=== PATIENT | male | born 2000 | race Caucasian/White ===

== ENCOUNTER 2018-08-15 17:51 | Inpatient (IN) | payer MEDICAID, OTHER ==
--- NOTE | 2018-08-15 18:16 | EDPHY ---
H & P Time Seen by Provider: 08/15/18 18:16 HPI/ROS: CHIEF COMPLAINT: Mental health hold HISTORY OF PRESENT ILLNESS: Patient was placed on a mental health hold at [facility] for outburst directed other people, paranoia, thinks that people are following him. Patient denies any acute medical complaints. According to the mental health hold thinks his mother's trying to poison him. REVIEW OF SYSTEMS: Eye: no change in vision ENT: no sore throat Cardiac: no chest pain or syncope Pulmonary: no cough or SOB Abdomen: no vomiting, diarrhea, abdominal pain Musculoskeletal: no back pain Skin: no rash Neuro: no headache Constitutional: no fever : no urinary symptoms A comprehensive 10 point review of systems is otherwise negative aside from elements mentioned in the history of present illness. PAST MEDICAL HISTORY: Asperger's and asthma Social history: THC only no drugs or alcohol other than that General Appearance: Alert and conversant, cooperative. Eyes: No scleral icterus. ENT, Mouth: Normal mucous membranes. Respiratory: Normal respiratory effort, breath sounds equal, lungs are clear to auscultation. Cardiovascular: Regular rate and rhythm. Gastrointestinal: Abdomen is soft and non tender. Neurological: Alert, face symmetric, normal motor and sensory in extremities. Skin: Warm and dry, no rashes. Musculoskeletal: No peripheral edema. Psychiatric: Not agitated. Does think people are following him. Denies suicidal ideation. Denies wanting to hurt other people. Emergency Department course/MDM: The patient had a medical screening evaluation performed. There does not appear to be an acute emergent medical or surgical condition which would preclude psychiatric evaluation at this time. Mental health evaluation is requested. Signed out to Janee with psychiatric evaluation pending at this time. (Andi Berman) Constitutional: Initial Vital Signs Temperature (C) 36.6 C 08/15/18 18:33 Heart Rate 80 08/15/18 18:33 Respiratory Rate 14 08/15/18 18:33 Blood Pressure 129/82 H 08/15/18 18:33 O2 Sat (%) 98 08/15/18 18:33 O2 Delivery Mode Room Air Medical Decision Making ED Course/Re-evaluation: 2100: The patient is signed out to mn at change of shift by Dr. Andi Berman. The patient is awaiting evaluation. Patient is signed out to Dr. Valdes at change of shift. (Zamzam Weller) 2315: Patient accepted and [address] Ruiz. Appropriate transfer be set up. EMTALA filled out. Acute Psychosis. (Dimitri Valdes) - Data Points Laboratory Results: Laboratory Results 08/15/18 18:10 08/15/18 18:10 08/15/18 08/15/18 08/15/18 18:48 18:10 18:10 WBC 5.69 10^3/uL 10^3/uL (3.80-9.50) RBC 4.28 10^6/uL L 10^6/uL (4.40-6.38) Hgb 12.8 g/dL L g/dL (13.7-17.5) Hct 38.5 % L % (40.0-51.0) MCV 90.0 fL fL (81.5-99.8) MCH 29.9 pg pg (27.9-34.1) MCHC 33.2 g/dL g/dL (32.4-36.7) RDW 12.8 % % (11.5-15.2) Plt Count 187 10^3/uL 10^3/uL (150-400) MPV 9.5 fL fL (8.7-11.7) Neut % (Auto) 58.6 % % (39.3-74.2) Lymph % (Auto) 32.7 % % (15.0-45.0) [place] % (Auto) 7.2 % % (4.5-13.0) Eos % (Auto) 0.9 % % (0.6-7.6) Baso % (Auto) 0.4 % % (0.3-1.7) Nucleat RBC Rel Count 0.0 % % (0.0-0.2) Absolute Neuts (auto) 3.34 10^3/uL 10^3/uL (1.70-6.50) Absolute Lymphs (auto) 1.86 10^3/uL 10^3/uL (1.00-3.00) Absolute Monos (auto) 0.41 10^3/uL 10^3/uL (0.30-0.80) Absolute Eos (auto) 0.05 10^3/uL 10^3/uL (0.03-0.40) Absolute Basos (auto) 0.02 10^3/uL 10^3/uL (0.02-0.10) Absolute Nucleated RBC 0.00 10^3/uL 10^3/uL (0-0.01) Immature Gran % 0.2 % % (0.0-1.1) Immature Gran # 0.01 10^3/uL 10^3/uL (0.00-0.10) Sodium 139 mEq/L mEq/L (135-145) Potassium 3.2 mEq/L L mEq/L (3.5-5.2) Chloride 108 mEq/L mEq/L (97-110) Carbon Dioxide 24 mEq/l mEq/l (22-31) Anion Gap 7 mEq/L mEq/L (6-14) BUN 15 mg/dL mg/dL (7-23) Creatinine 0.7 mg/dL mg/dL (0.7-1.3) Estimated GFR > 60 Glucose 125 mg/dL H mg/dL (70-100) Calcium 9.0 mg/dL mg/dL (8.5-10.4) Urine Opiates Screen NEGATIVE (NEGATIVE) Urine Barbiturates NEGATIVE (NEGATIVE) Ur Phencyclidine Scrn NEGATIVE (NEGATIVE) Ur Amphetamine Screen NEGATIVE (NEGATIVE) U Benzodiazepines Scrn NEGATIVE (NEGATIVE) Urine Cocaine Screen NEGATIVE (NEGATIVE) U Marijuana (THC) Screen NON-NEGATIVE H (NEGATIVE) Ethyl Alcohol < 10 mg/dL mg/dL (0-10) Departure - Departure Disposition: [facility] IP Clinical Impression: Acute psychosis Condition: Fair Referrals: Patient,NotPresent [Unknown] - As per Instructions
[2018-08-15 18:23] LABS: PLATELET COUNT 187 10^3/uL (150-400)
--- NOTE | 2018-08-15 22:24 | ASMTTCLDSP ---
TLC Discharge Disposition Disposition: Answers: Admit Discharge Concerns/Recommendations: Notes: In consultation with [facility] ED physician, Dimitri Hanks MD and on-call psychiatrist, Dr. Joseph MD, both concurred that pt appears to meet 27-65 criteria requiring psychiatric hospitalization as pt appears to be at risk of harm to self/ others due to a mental illness condition. Pt was given the 3N prohibited belongings list while in the ED. For inpatient Trixie Ruiz MD admission, the following psychiatrist agreed to accept patient [facility] Date Signed: 08/15/2018 10:23 PM Electronically Signed By:Benita Simms
[2018-08-16] MEDS ORDERED: ACETAMINOPHEN 325 MG TAB PO PRN (02:05)
[2018-08-16] MEDS ORDERED: OLANZapine DISINTEGR 5 MG TAB PO PRN (02:05)
[2018-08-16] MEDS ORDERED: NICOTINE POLACRILEX 2 MG GUM B PRN (02:05)
[2018-08-16] MEDS ORDERED: MELATONIN 3 MG TAB PO PRN (02:05)
[2018-08-16] MEDS ORDERED: MAG HYDROX/AL HYDROX/SIMETH 30 ML UDCUP PO PRN (02:05)
[2018-08-16] MEDS ORDERED: LORazepam 0.5 MG TAB PO PRN (02:05)
[2018-08-16] MEDS ORDERED: MAGNESIUM HYDROXIDE 30 ML UDCUP PO PRN (02:05)
--- NOTE | 2018-08-16 07:36 | ASMTBHMTP ---
Master Treatment Plan Date: 08/16/2018 Diagnosis on Admission: Unspecified Psychosis Expected length of stay: 3-5 days Reason for admission: Notes: Client was in the middle of having a psychotic break.* Patient's stated presenting problems: Notes: "I raised my voice while doing an assessment at [facility]." Patient's goals for treatment: Notes: To sleep, be less angry and try to do the right things Patient's strengths: Notes: some Identify supports outside of hospital: Notes: family and friends Discharge criteria: Notes: Patient will demonstrate more stable mood by discharge.* Initial disposition plan/considerations: Notes: return back home to [place], [place].* Master Treatment Plan Required Signatures Psychiatrist signature: Answers: Psychiatrist: RN on-shift signature: Answers: RN: Patient signature: Answers: Patient: Date Signed: 08/16/2018 07:35 AM Electronically Signed By:Panda Mcrae
--- NOTE | 2018-08-16 12:01 | BAPA ---
DATE OF SERVICE: 08/16/2018 CHIEF COMPLAINT: "Getting an assessment at [facility], and they recommended that I go to the hospital." HISTORY OF PRESENT ILLNESS: From the ED note dated 08/15/2018, the patient was placed on a mental health hold at [facility] for outburst directed at other people, paranoia, and thinking that people are following him. The patient was admitted involuntarily on an M1 hold due to being gravely disabled and is hospitalized for safety, crisis stabilization, and medication evaluation. 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 The patient reports increased use of THC and reports "probably using too much." The patient reports daily use of marijuana at least 3-4 times every day for several months. The patient reports no history of being diagnosed with a mental illness. The patient reports using no other alcohol or substances prior to his admission. The patient reports no current psychiatric symptoms. The patient reports no paranoia and reports no delusions or paranoia regarding people following him. The patient reports recent emotional abuse at the [facility]. Patient reports anxiety symptoms including excessive anxiety and worry occurring more days than not for at least 6 months, patient finds it difficult to control worry, and describes having the following symptoms that have been present for more days than not for the past 6 months: restlessness, being easily fatigued, difficulty concentrating or mind going blank, and irritability. The patient denies any PTSD symptoms from this abuse. The patient denies psychiatric symptoms, including symptoms of depression, robby, ADHD, OCD, PTSD, psychosis, and any other symptom of psychiatric disorder. The patient describes to this DRIVERS' CASH CLERK current psychiatric symptoms are impacting managing his day-to-day life described as reports he currently lives with his mother in [place], [place], and reports he does attend to household responsibilities without any difficulty. 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 The patient reports he is socializing a lot better than when he was a child and in high school and reports he does have friends he socializes with. The patient reports he gets along well with his mother and currently lives with his mother. The patient states he is currently not in school. Enjoys hobbies, including film making and writing. The patient states he is generally satisfied with his life. The patient denies current suicidal ideation and reports protective factors or reasons to live as life, his future, and his family. The patient reports future goals as entering the [employer] business. The patient reports his mother is supportive. The patient denies current homicidal ideation and denies current self-injurious ideation. The patient reports he currently is not established with medication management or therapy on an outpatient basis. The patient does state he has a primary care provider in the community, but states he cannot remember the provider's name at this time. PAST PSYCHIATRIC HISTORY: The patient describes to this DRIVERS' CASH CLERK the following psychiatric history: Patient reports no past diagnoses of psychiatric illness. Patient reports no past psychotropic medication trials. The patient reports no history of inpatient psychiatric hospitalization and treatment. No history of withdrawal from drugs or alcohol. The patient denies any history of suicide attempts or self-injurious behavior. ALLERGIES: No known allergies. CURRENT MEDICATIONS: After reviewing options, risks, and benefits with the patient, the patient reports he is not interested in medications at this time. Medications may not be indicated, as patient's most recent increase in anxiety and paranoia may be due to patient's increased use of THC. PAST MEDICAL HISTORY: The patient describes to this DRIVERS' CASH CLERK the following: Patient reports no past neurological history, including history of organic brain disease , traumatic brain injury, or concussions. The patient reports no history of major illnesses. The patient reports he was hospitalized as a child for asthma. SOCIAL HISTORY: The patient describes to this DRIVERS' CASH CLERK the following social history: The patient reports he was born in [place] and raised the majority of his life in [place] by his mother. The patient states he currently lives with his mother in [place]. The patient describes meeting all his developmental milestones. Reports no history of learning delays or difficulties. The patient describes his sexual orientation as amezcua sexual. States he is currently not in a relationship, has never been , and has no children. 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 The patient reports highest level of education is some college. Reports no history of duty. No zoroastrian or spiritual practice and no history of legal charges or issues. SUBSTANCE USE HISTORY: The patient describes to this DRIVERS' CASH CLERK the following substance use history: The patient reports he does not consume alcohol and uses marijuana daily for approximately 2 years with an increased use of marijuana over the last 1-2 months. The patient denies all other history of illicit substance use. SUBSTANCE ABUSE BRIEF INTERVENTION: Brief intervention regarding the risks of cannabis abuse is provided to patient with goal to reduce the risk of harm that could result from the continued use of cannabis, with the general aim to investigate the problem, raise awareness of problem, develop a solution with the patient, recommend a specific change or activity, and motivate the patient toward change. Assess substance abuse behavior and give supportive advice about harm reduction, recommend a reduction in hazardous/at-risk consumption patterns, and facilitate referrals for additional specialized treatment with disabilities caregiver. Intermediate goal is for the patient to quit and attend outpatient substance abuse treatment. Intervention focus on intermediate goals to allow for more immediate success in the treatment process to keep the patient motivated. Review following with patient: Cannabis use risks: Short- term use: impaired short-term memory, impaired motor coordination, altered judgement, in high doses paranoia and psychosis. Long-term use addiction, diminished life satisfaction and achievement, symptoms of chronic bronchitis, and increased risk of chronic psychosis disorders if predisposition to such disorders. In withdrawal anger, aggression irritability, anxiety and nervousness, decreased appetite or weight loss, restlessness, and sleep difficulties with strange dreams. OUTPATIENT SUBSTANCE ABUSE TREATMENT: Patient referred to outpatient provider and treatment for continued treatment related to substance abuse. FAMILY PSYCHIATRIC HISTORY: The patient describes to this DRIVERS' CASH CLERK the following family psychiatric history: The patient reports his mother suffers from PTSD. The patient reports no family history of suicide or suicide attempts and no family history of substance abuse. ADMISSION LABS AND STUDIES: 1. CBC from 08/15/2018 within normal limits, except red blood cells were low at 4.28. Hemoglobin was low at 12.8, hematocrit was low at 38.5. 2. BMP within normal limits, except potassium was low at 3.2, glucose was elevated at 125. 3. Hemoglobin A1c was 5.6 and within normal limits. 4. Liver function within normal limits. 5. Lipid panel within normal limits, except triglycerides were low at 31, cholesterol was low at 139, VLDL cholesterol was low at 6, non-HDL cholesterol was low at 89. 6. Toxicology screen non negative for THC, negative for all other substances screen and negative for ethyl alcohol. MENTAL STATUS EXAM: The patient is a well-nourished male looking stated chronological age. Attire is appropriate. Dress is casual, neat, and clean. Grooming status is appropriate, neat, and clean and washed. Ambulation is independent. Gait is normal and coordinated. Posture is normal and relaxed. Eye contact is appropriate and adequate. Motor activity is appropriate with purposeful, organized, coordinated movements with no involuntary movements noted. Attitude is cooperative and friendly. The patient appears attentive and relates well to this interviewer. Language production is spontaneous. Rate , rhythm, and volume are normal. Articulation is clear. The patient reports mood as euthymic with adequately ranged and congruent affect. Patient's thought process is linear and logical with no loose associations, tangential thought, thought blocking, concrete thinking, or any other signs of formal thought disorder. The patient does not report suicidal, homicidal thoughts, ideas, or plans. The patient denies auditory or visual hallucinations. Patient denies delusions. The patient does not appear to be attending to internal stimuli. The patient is oriented to person, place, time, and situation. The patient's attention and concentration are fair. The patient's insight and judgment are poor. There is no evidence of gross cognitive dysfunction at any point during the interview and no evidence of apparent dysfunction in recent or remote memory noted. DIAGNOSES: Based on the patient's history and current presentation, the patient 's diagnoses are: 1. Generalized anxiety disorder. 2. Cannabis-induced delusions, psychosis. 3. Cannabis use disorder, severe. 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 He presents to the hospital involuntarily due to being gravely disabled and is currently on an M1 hold. Patient requires continued inpatient care because of recent crisis that led to this hospitalization. The patient presents with problems of increased anxiety and paranoia that have steadily been increasing over the past several weeks. Patient's life has been affected by these problems, including seeking evaluation at [facility]. The onset and exacerbation of symptoms was preceded by patient's increased use of THC. The patient reports no past psychiatric history. The patient is a high safety risk due to recent anxiety and paranoia and the crisis at [facility] that led to this hospitalization. The patient could benefit from observation to ensure anxiety and paranoia clear in the absence of THC use. PROTECTIVE FACTORS WHILE HOSPITALIZED: Include ongoing safety checks, active involvement in treatment, and support from our treatment team. The patient could benefit from inpatient hospitalization for safety, crisis stabilization, and medication evaluation. PLAN: 1. Psychotropic medications: After reviewing options, risks, and benefits with the patient, the patient reports he is not interested in medications for anxiety at this time. Psychotropic medications may not be indicated, as the patient's most recent psychiatric symptoms of anxiety and increased paranoia may be due to the patient's recent increased use of THC. No other medication changes at this time as more time is needed to determine ongoing tolerability and efficacy. Plan is to continue to observe patient for response and side effects from medications, and ongoing monitoring and evaluation. 2. Review with patient informed consent and recommendations for psychotropic medication treatment listed below 3. Labs: A1c, liver function, lipid panel 4. Therapy: continue milieu and group therapy 5. Further investigation including gathering information from patients relatives and review of past case records to inform treatment plan. 6. Safety/Wellness plan and follow-up outpatient appointments to be established prior to discharge. Next steps are for patient to meet with child care specialist to plan a safe discharge plan and establish outpatient services for ongoing treatment. 7. Confer with inpatient treatment team regarding treatment plan. 8. Address psychosocial stressors by meeting with disabilities caregiver to establish discharge plan including referrals for outpatient services. 9. Legal status: M1 10. Consider discharge next week if patient is in stable condition, safe, and has a safe discharge plan. 11. Substance abuse interventions: cannabis ESTIMATED LENGTH OF STAY: 1-3 days PSYCHOTROPIC MEDICATION TREATMENT INFORMED CONSENT and RECOMMENDATIONS: Review nature of condition, diagnosis, and prognosis. Review nature and purpose of psychotropic medication treatment. Review type of psychotropic medications being ordered. Review risk and benefits of psychotropic medication treatment. Review probable length of time will need to take medications. Review risk and benefits of not undergoing psychotropic medication treatment. Review alternative treatments to psychotropic medications. Review psychotropic medications contraindications, drug-drug interactions, side effects, and importance of reporting any side effects to a psychiatric provider or nurse during inpatient hospitalization, and upon discharge to patients psychiatric outpatient provider, primary care provider, or other health patient care representative. Review importance of asking a nurse, psychiatric provider, or primary care provider any questions or problems concerning the psychotropic medications. Verify patient understands the information that has been provided, and understands, accepts, and agrees to psychotropic medications. Review patients safety plan and importance of patient to communicate to staff while hospitalized if patient is ever a danger to self/others, or unable to care for self, and upon discharge, the importance for patient to contact [facility] or [facility], or go to the nearest emergency room, if patient is ever a danger to self/others, or unable to care for self. Recommend that upon discharge patient establish medication management treatment with a psychiatric provider, establishes routine therapy appointments, and follow-up with primary care provider. Verify patient understands and agrees to these recommendations. /[id number]/MODL KIERRA
--- NOTE | 2018-08-16 12:30 | PDMN ---
Medical Necessity Medical necessity: Pt meets IP criteria as of 08/16/2018 per and [facility] B-[id number] ( Anxiety Disorders, Adult, IP care); los > 2 mn for ongoing tx and management of generalized anxiety disorder on M1 hold for grave disability.
--- NOTE | 2018-08-16 14:47 | BCON ---
INTERNAL MEDICINE CONSULTATION DATE OF CONSULTATION: 08/16/2018 REFERRING PHYSICIAN: Trixie Ruiz MD REASON FOR REFERRAL: Medical clearance for inpatient behavioral health stay. HISTORY OF PRESENT ILLNESS: This patient came to the emergency department. He had been placed on a mental health hold at [facility]. He had outbursts directed at other people and paranoia, and he thought his mother was trying to poison him. He was evaluated by the mental health team and admitted for further psychiatric care. Currently, he is without any acute complaints. PAST MEDICAL HISTORY: 1. Asthma. 2. Asperger's syndrome. PAST SURGICAL HISTORY: He had an injury to the 4th finger of his right hand with surgical correction and his left with a swan-neck deformity. MEDICATIONS: Prior to admission, he was taking no medications. SOCIAL HISTORY: He is a nonsmoker and denies using alcohol. He has been using large amounts of cannabis. 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 He lives with his mother. He has been in college and plans to return, though he is also looking for full-time work at present. FAMILY HISTORY: Noncontributory. REVIEW OF SYSTEMS: He is not in pain. He denies cough or dyspnea. He denies chest pain or palpitations. He denies nausea, vomiting, constipation, or diarrhea. He denies abdominal pain, and otherwise, a 10-point review of systems is negative. He has recently become a vegetarian, and he reports he has had weight loss and then regained some of the weight. PHYSICAL EXAM: VITAL SIGNS: Blood pressure is 115/57. Heart rate is 69. Respiratory rate is 20. Oxygen saturation is 93% on room air. Temperature is 36.3 degrees centigrade. His weight is 65.8 kg, for a body mass index of 18.6. GENERAL: This is a thin man, appears his chronologic age, dressed in street clothes, sitting up on the bed, cooperative and in no acute distress. HEENT: Extraocular movements are intact. Pupils are equal, round, reactive to light. Mucous members are moist. Dentition is in good condition. He has an uncrowded airway, Mallampati class 1. NECK: Supple. HEART: There is a regular rate and rhythm, with no murmurs, rubs, or gallops. LUNGS: Clear to auscultation bilaterally. ABDOMEN: Benign. EXTREMITIES: There is no cyanosis, clubbing, or edema. NEUROLOGIC: He is alert and oriented x3. Cranial nerves 2-12 are grossly intact. There is no focal weakness. Sensation is intact to light touch , and gait is within normal limits. LABORATORY STUDIES: From the emergency department: CBC showed anemia with a hemoglobin of 12.8 and hematocrit of 38.5. Red cell indices were normal, as were white blood cell count and platelet count. Serum chemistry showed mild hypokalemia with a potassium of 3.2. Glucose was elevated at 125, but this may not have been fasting. Hemoglobin A1c was normal at 5.6. Liver function tests were normal. Lipid panel was quite benign, with a total cholesterol of 139, an LDL of 83, and an HDL of 50. Toxicology screen in the serum was negative for ethyl alcohol and in the urine was non-negative for marijuana, but otherwise negative for substances of abuse. ASSESSMENT/RECOMMENDATIONS: 1. Mental health issues pending further evaluation and management per Psychiatry and the mental health team. 2. Marijuana use disorder. He might benefit from specific substance abuse counseling. 3. Anemia of unclear etiology. I will order iron panel, as well as a reticulocyte count to further characterize this anemia. 4. Hypokalemia. Also unclear etiology. It is mild. He can have followup testing after his discharge from inpatient behavioral health. I see no medical contraindications to this patient's continued stay on the inpatient behavioral health unit or to any psychiatric medications or procedures. Thank you very much for including me in the care of this patient and please do not hesitate to contact me or the hospitalist service should there be need for further medical evaluation. /[id number]/MODL MTDD
--- NOTE | 2018-08-16 18:38 | SOAPPROG ---
SOAP Progress Note Assessment/Plan: Assessment: Anemia, iron deficiency. Possibly due to vegetarian diet, though other etiologies of blood-loss anemia should be considered. I have ordered ferrous sulfate 325 mg p.o. Q.day for 30 days. He can have followup with primary care after his discharge. 08/16/18 18:37 Subjective: Reviewed labs. Iron deficiency and reduced reticulocyte count. 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
[2018-08-17] MEDS: FERROUS SULFATE 325 MG TAB PO SCH (08:12)
--- NOTE | 2018-08-17 14:55 | ASMTCMCOM ---
CM Note CM Note Notes: Pt. reports feeling "pretty good". Pt. reports he kept waking up last night, stating he maybe" coming down from THC". Pt. reports eating well. Pt. stated he is attending groups, adding "I like them". Pt. stated he is not currently taking medications Pt. denied SI, HI, AVH and paranoia. Pt. presents as alert, calm, friendly, good eye contact, groomed, and cooperative. Staff report pt. sleeping 10 hours and being medication compliant. Date Signed: 08/17/2018 02:54 PM Electronically Signed By:Kim Luong
--- NOTE | 2018-08-17 19:19 | SOAPPROG ---
SOAP Progress Note Assessment/Plan: Assessment: 18 yo man with h/o cannabis-induced paranoid delusions. His psychotic sxs have resolved since admission while he is in controlled environment. Plan: 08/17/18 19:[address] Kiser started patient on Ferrous Sulfate 325mg daily x 30 days for iron- deficiency anemia likely d/t vegetarian diet. Recommend f/u with PCP after d/c. 2. Patient denies all psychotic sxs. His paranoid delusions have resolved since admission. 3. Patient does not want to take any psych meds. MD advised patient about risks and potential adverse effects associated with cannabis use including paranoia and other psychotic sxs. He agrees he needs to "cut back." 4. Referral for patient to seek mental health services through [facility]. MD recommend IOP or similar tx for substance use disorder. 5. [facility] expires tomorrow. Will likely d/c at that time as he no longer meets criteria for inpatient. Subjective: Patient sitting in chair in front of TV watching football game. Patient requests melatonin to help him sleep. He denies any AH/VH and reports that his paranoid delusions have resolved. He says he has probably been using "way too much cannabis." He would like to cut back. suggested IOP for substance use treatment. He is willing to see shelter case manager at [facility] to discuss options for treatment. Objective: Vital Signs Temp Pulse Resp BP Pulse Ox 36.3 C 72 14 117/67 97 08/17/18 06:00 08/17/18 06:00 08/17/18 06:00 08/17/18 06:00 08/17/18 06:00 Laboratory Results 08/16/18 06:10 MSE: Affect: Euthymic Mood: "Good" TP: Linear TC: Denies SI/HI, denies any paranoid thoughts Perception: Denies any SI/HI Insight/Judgment: Fair - Time Spent With Patient Time Spent With Patient: 15" - Pending Discharge Pending Discharge Within 24 Hours: Yes Pending Discharge Within 48 Hours: No Pending Discharge Date: 08/18/18 (Likely to d/c tomorrow once hold expires) Pending Discharge Time: 11:00 ICD10 Worksheet Patient Problems: Problems Problem Status Onset Cannabis use disorder, severe, dependence Acute 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
[2018-08-17] MEDS: MELATONIN 3 MG TAB PO PRN ×2 (20:28→20:44)
[2018-08-18 06:53] VITALS: BP 116/67
[2018-08-18] MEDS: FERROUS SULFATE 325 MG TAB PO SCH (08:09)
--- NOTE | 2018-08-18 15:23 | BDS ---
REASON FOR ADMISSION: Patient is a 18-year-old man who was placed on a mental health hold at [facility] for grave disability. He had an outburst at the [facility] walk-in clinic and was acting pa ranoid, thinking that people were following him. Also told the folks at the [facility] t hat his mother was trying to poison him. The patient reports daily use of marijuana, 3 to 4 times a day. Increased use over the last several months. He admits that this has led him to feel more anxio us and paranoid. He says that he finds it difficult to stop worrying. The patient is currently living with his mother in [place]. 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 The patient denied any hallucinations. He denied feeling sad, depressed, helpless, hopeles s, worthless, or anxious. He denied panic attacks. He had no signs or symptoms of robby. Denied in creased goal-directed activity, decreased need for sleep, elated elevated mood, grandiose delusions, racing thoughts, or pressured speech. ADMITTING DIAGNOSES: 1. Generalized anxiety disorder. 2. Cannabis-induced psychosis. 3. Cannabis-use disorder, severe. PHYSICAL EXAMINATION: Was done by Dr. Theo Kiser. The patient has a history of asthma, carries a diagnosis of Asperger disorder. He presented with hypokalemia that was mild. Dr. Kiser did not recommend any interventions. There were no acute abnormal physical findings. He did have anemia. Tony Kiser did order an iron panel, including a retic count. LABS: White cell count was 5.69, hemoglobin was 12.8, hematocrit was 38.8, platelet count was 187. His absolute reticulocyte count was 0.050, and the percent was 1.07. Sodium was 139, potassium 3.2, chloride 108, BUN 15, creatinine 0.7, glucose 125. Hemoglobin A1c was 5.6. Calcium was 9.0, magnesi um 1.9. Iron was 45, iron saturation was 14. Total bilirubin was 0.7, AST was 28, ALT was 21, alkal ine phosphatase was 71, total protein was 7.1, albumin 4.0. Triglycerides 31, cholesterol 139. Urin e drug screen was positive for marijuana. Negative for all other drugs of abuse. HOSPITAL COURSE: Patient was seen by the psychiatric Nurse Practitioner, Yang Crain, on 08/16/2018 , the patient's first full day of admission. At that time, when Yang Crain interviewed the patient , the patient denied any paranoid delusions. His psychotic symptoms had resolved. He did not feel l gato people were following him or out to get him. He did not feel like his mother was trying to poiso n him. He basically denied all paranoid delusions. He also denied any acute psychotic symptoms, inc luding denying auditory and visual hallucinations. Denied ideas of reference. There was no other ev idence of delusions present. Te patient denied any acute mood problems. He did not have any signs o r symptoms of robby. He also denied feeling sad, depressed, helpless, hopeless, worthless. He also denied any thoughts, plans, or intents, to hurt himself or anyone else. Yang Crain did talk to the patient about the possibility of taking psychotropic medications. The patient was against that. He said that he did not feel like he needed medications because he was not having any symptoms any long er. The psychiatric nurse practitioner did talk to the patient about the adverse effects of THC on m ood and cognition. They discussed that cannabis use can cause psychosis including paranoid delusions , also the risk of prolonged exposure to cannabis increases the risk of developing a psychotic disord er, and also has significant effects on mood, lability, depression, and thoughts of suicide. The yaa barrow admitted that he felt like he "had been using too much cannabis." Patient also said that he wan rd to "cut down" his use and that he was willing to speak to a counselor after discharge, but he dec lined any psychotropic medications. Dr. Kiser reviewed the patient's labs and spoke to the patient about his anemia. Labs indicated brown t the patient has iron deficiency anemia. Dr. Kiser noted that it was most likely due to the patien t's vegetarian diet, although there were other reasons why the patient might have iron loss. He said that his recommendation was for the patient to take iron supplements 325 mg p.o. daily for 30 days a nd then follow up with his primary care physician. The patient said that he agreed to do that. This MD saw the patient on 08/17/2018. The patient denied all psychotic symptoms. His paranoi d delusions had fully resolved since admission. Patient repeated that he did not want to be on any p sychotropic medications at this time. This MD reviewed the risks and potential adverse effects assoc iated with cannabis use including paranoia and other psychotic symptoms, as well as the effect of pro longed use on mood. The patient agreed that he was going to "cut back" on his cannabis use. He felt like he had gone overboard, especially in the last several months, and recognized that it was making his anxiety and paranoia worse. The patient said he was willing to seek followup services through [facility]. This MD recommended intensive outpatient program or similar treatment for sub stance-use disorder. Patient says that he is willing to talk to a foster care case manager at [facility] about outpatie nt treatment options when he leaves. DISCHARGE MEDICATIONS: The patient was discharged with a prescription for iron supplements, ferrous sulfate 325 mg 1 tab p.o. daily, 30 tabs, no refills, and melatonin 3 to 6 mg p.o. at bedtime p.r.n. for sleep, 30 tabs, no refills. DISCHARGE DIAGNOSES: [place] I: 1. Cannabis-induced psychosis. 2. Cannabis-use disorder, severe. CONDITION AT DISCHARGE: The patient was in good spirits, stable condition. He says that his mood is "good." He denies any paranoid delusions. Denies psychotic symptoms. Denies thoughts, plans, or i ntents, to hurt himself or anyone else. ATTITUDE AT DISCHARGE: The patient was looking forward to getting back to work, going to stay with h is mom. He also stated that he would take the recommendations from the treatment team about followin g up for substance-use disorder counseling through [facility]. FOLLOWUP CARE: The patient is not currently connected with any outpatient providers. He was given r eferrals to the [facility] Walk[facility]in [facility], the days and times when he could go to that. He said that would not be a problem for him. His mother was coming to pick him up. She said she not ed that she felt the patient was "fine" to come home and that he would be staying with her and she wo uld make sure that he followed up with his PCP in order to get his anemia rechecked after he finishes a 3 0-day course of the iron supplements. /[id number]/MODL
--- NOTE | 2018-08-18 15:24 | ASMTBHDC ---
Notes Note: Notes: Pt. reports feeling "pretty good". Pt. stated he slept "alright" adding the melatonin helped. Pt. stated he did "still tossed and turned, but better than last night". Pt. reports today being his third day on THC withdrawal Pt. stated "maybe I'll completely abstin" from THC. Pt. reports eating well and attending groups "as much as I can". Pt. reports no issues with his current medication. Pt. stated he wants to discharge today, adding his mother can pick him up. Pt. stated he is able to schedule his own follow up appointments. Pt. denied SI, HI, AVH and paranoia. Pt. presents as alert, calm, polite, good eye contact, friendly and cooperative. Staff report pt. sleeping 9 hours. CC provided marijuana anonymous information pt. requested. Date Signed: 08/18/2018 03:24 PM Electronically Signed By:Kim Luong
== END 2018-08-18 16:20 | disposition home or self-care (01) | DRG 897 ==
LOC: EDUNIT# → BBEH 08-16 01:50
PROVIDERS: ADMIT Psychiatry & Neurology Behavioral Neurology & Neuropsychiatry; ATTEND Psychiatry & Neurology Behavioral Neurology & Neuropsychiatry
DX: F12.950 Cannabis use, unspecified with psychotic disorder with delusions (principal); F12.980 Cannabis use, unspecified with anxiety disorder; E87.6 Hypokalemia; D64.9 Anemia, unspecified; F84.5 Asperger's syndrome; J45.909 Unspecified asthma, uncomplicated
CPT/HCPCS: 80305; G0480

== ENCOUNTER 2018-11-09 18:01 | Emergency (ER) | payer MEDICAID ==
[2018-11-09 18:08] VITALS: BP 144/85
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
== END 2018-11-09 18:30 | disposition home or self-care (01) ==
DX: S00.83XA Contusion of other part of head, initial encounter (principal); R20.2 Paresthesia of skin; F84.5 Asperger's syndrome; Y04.8XXA Assault by other bodily force, initial encounter; Y99.9 Unspecified external cause status

== ENCOUNTER 2018-11-11 16:17 | Emergency (ER) | payer MEDICAID ==
[2018-11-11 16:30] VITALS: BP 113/68
--- NOTE | 2018-11-11 16:39 | EDPHY ---
H & P Stated Complaint: injury yesterday; back pain between shoulder blades, anxiety, panic attack Time Seen by Provider: 11/11/18 16:39 - Personal History Current Tetanus/Diphtheria Vaccine: No Current Tetanus Diphtheria and Acellular Pertussis (TDAP): No - Medical/Surgical History Hx Asthma: Yes Hx Chronic Respiratory Disease: No Hx Diabetes: No Hx Cardiac Disease: No Hx Renal Disease: No Hx Cirrhosis: No Hx Alcoholism: No Hx HIV/AIDS: No Hx Splenectomy or Spleen Trauma: No Other PMH: aspergers, asthma - Social History Smoking Status: Never smoked Constitutional: Initial Vital Signs Temperature (C) 36.6 C 11/11/18 16:25 Heart Rate 72 11/11/18 16:25 Respiratory Rate 14 11/11/18 16:25 Blood Pressure 113/68 11/11/18 16:25 O2 Sat (%) 97 11/11/18 16:25 O2 Delivery Mode Room Air Allergies/Adverse Reactions: No Known Allergies Allergy (Verified 11/09/18 18:03) Home Medications: Medication Instructions Recorded NK [No Known Home Meds] 11/09/18 Medical Decision Making ED Course/Re-evaluation: CHIEF COMPLAINT: Back pain HISTORY OF PRESENT ILLNESS: The patient is a 18 y/o male with a history of Asperger complaining of back pain between his shoulder blade today. The patient states he was dancing yesterday when he thought he tweaked his back. Due to this pain today he had an anxiety attack and EMS was called. As his pain has not improved he decided to present to the emergency department. No fever, headache, body aches, lightheadedness, chest pain, heart palpitations, shortness of breath, cough, abdominal pain, urinary or bowel complaints, paresthesias. REVIEW OF SYSTEMS: A comprehensive 10 system review of systems is otherwise negative aside from elements mentioned in the history of present illness and medical decision making. PHYSICAL EXAM: HR, BP, O2 Sat, RR. Temp noted General Appearance: Alert, well hydrated, appropriate, and non-toxic appearing. Head: Tenderness over the left eyebrow, which I believe is residual to the contusion. Eyes: Pupils equal, round, reactive to light and accommodation, EOMI, no trauma , no injection. Ears: Clear bilaterally, no perforation, normal landmarks Nose: Atraumatic, no rhinorrhea, clear. Throat: There is no erythema or exudates, no lesions, normal tonsils, mucus membranes moist. Neck: Supple, 2+ carotid upstroke, nontender, no lymphadenopathy. Respiratory: No retractions, no distress, no wheezes, and no accessory muscle use. Lungs are clear to auscultation bilaterally. Cardiovascular: Regular rate and rhythm, no murmurs, rubs, or gallops. Bilateral carotid, radial, dorsalis pedis, and posterior tibial pulses intact. Good capillary refill all extremities. Gastrointestinal: Abdomen is soft, nontender, non-distended, no masses, no rebound, no guarding, no peritoneal signs. Back: Pimple in between shoulder blades at location of back pain. Musculoskeletal: Normal active ROM of all extremities, atraumatic. Neurological: Alert, appropriate, and interactive. The patient has normal DTRs and non-focal cranial nerves, motor, sensory, and cerebellar exam. Skin: No rashes, good turgor, no nodules on palpation. Past medical history: Asthma and Asperger Past surgical history: Denies Family history: Denies Social history: Single, lives in [place], employed DIAGNOSTICS/PROCEDURES/CRITICAL CARE TIME: Not indicated. DIFFERENTIAL DIAGNOSIS: The differential diagnosis for the patient's head injury included but was not limited to soft tissue contusion, concussion, skull fracture, intra-parenchymal contusion, subarachnoid, subdural and epidural hematoma. MEDICAL DECISION MAKING: The patient is a 18 y/o male with a history of Asperger presenting with back pain today. On exam the patient has a pimple on his back at the location of his pain. I have offered to remove the tip of the pimple, which the patient has politely declined as it is making him too anxious. Imaging and laboratories are not indicated as his back pain is from the pimple and musculoskeletal pain. I have advised him to follow up with his psychiatrist for anxiety. Return precautions provided; patient is comfortable with this plan. Departure - Departure Disposition: Home, Routine, Self-Care Clinical Impression: Pimples, Musculoskeletal back pain Condition: Good Instructions: Back Pain (ED) Additional Instructions: 1. Followup with your psychiatrist within one week for anxiety. 2. Return to the emergency department for severe pain, fever, numbness, difficulty walking, change in location or nature of pain or other concerns. 3. Take Motrin over the counter for pain. Referrals: NILDA ARRIAGA [Primary Care Provider] - As per Instructions [facility],. [Clinic] - As per Instructions Jose Ramon Willett MD [Medical Doctor] - As per Instructions Report Scribed for: Federico Duval Report Scribed by: Ana Paula Miller Date of Report: 11/11/18 Time of Report: 16:41
[2018-11-11] MEDS ORDERED: IBUPROFEN 800 MG TAB PO ONE (16:45)
== END 2018-11-11 16:52 | disposition home or self-care (01) ==
DX: R23.8 Other skin changes (principal); M54.9 Dorsalgia, unspecified; F41.9 Anxiety disorder, unspecified; F84.5 Asperger's syndrome

== ENCOUNTER 2019-01-23 20:38 | Emergency (ER) | payer MEDICAID | END 2019-01-23 21:24 | disposition home or self-care (01) ==

== ENCOUNTER 2019-01-31 12:23 | Emergency (ER) | payer MEDICAID | END 2019-01-31 14:38 | disposition home or self-care (01) ==

== ENCOUNTER 2019-02-05 06:25 | Emergency (ER) | payer MEDICAID | END 2019-02-05 07:25 | disposition home or self-care (01) ==